=== PATIENT | female | born 1955 | race Two or more races ===

== ENCOUNTER → 2016-09-01 | Outpatient (CLI) | payer OTHER | LOC: BRMIMAGING 10:46 → MERGE 11:00 → BRMIMAGING 11:00 | PROVIDERS: ATTEND Physician Assistant Medical | DX: Z12.31 Encounter for screening mammogram for malignant neoplasm of breast (principal) | CPT/HCPCS: G0202 ==

== ENCOUNTER → 2016-09-09 | Outpatient (CLI) | payer OTHER | LOC: BRMIMAGING 09:33 | DX: Z12.39 Encounter for other screening for malignant neoplasm of breast (principal); R92.0 Mammographic microcalcification found on diagnostic imaging of breast | CPT/HCPCS: G0206 ==